=== PATIENT | male | born 1955 | race Caucasian/White ===

== ENCOUNTER 2022-04-01 12:05 | Outpatient (CLI) | payer OTHER, BC, SELFPAY ==
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
== END 2022-04-01 12:06 | disposition home or self-care (01) ==
LOC: AMB 05-02 15:50
PROVIDERS: PCP Family Medicine; Visit Provider Emergency Medicine Emergency Medical Services
DX: R10.9 Unspecified abdominal pain (principal)

== ENCOUNTER 2022-04-01 14:30 | Emergency (ER) | payer OTHER, BC, SELFPAY ==
[2022-04-01] VITALS (10 sets, daily range): BP systolic 96–193; BP diastolic 64–113; PULSE 57–87; RESP 18–24; TEMP 37.2; O2SAT 97–100; BMI 36.6
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
[2022-04-01 15:34] LABS: Appearance Urine Clear (Clear); Bilirubin Urine Negative (Negative); Blood Urine Negative (Negative); Color Urine Yellow (Yellow); Glucose Urine Negative (Negative); Ketones Urine Negative (Negative); Leukocyte Esterase Urine Negative (Negative); Nitrite Urine Negative (Negative); Protein Urine 1+ (Negative); Specific Gravity Urine 1.025 (1.000-1.030); Urobilinogen Urine 0.2 (0.2-1.0); pH Urine 5.5 (5.0-8.5)
--- OUTSIDE RECORDS SUMMARY | 2022-04-01 15:57 | XMS_ITS | Clinical Summary ---
:1955 Author Organization [email or web address] [facility] [facility] [place] [address] Care Team Providers Name Role Phone Suad Mobley MD Primary Care Provider [phone] Allergies No known active allergies Medications Medication Sig Dispensed Refills Start End Date Status Date aspirin chewable Take 1 tablet by 90 tablet 3 Active 81 mg chewable mouth once daily 8 tabletIndications with a meal. : Diabetes mellitus type 2, uncontrolled, with complications blood-glucose Dispense meter, 1 Device Active meterIndications: test strips, 8 Diabetes mellitus lancets covered type 2, by pt ins. E11.9 uncontrolled, IDDM type II - with Test 3 complications times/day. ACCU-CHEK GUIDE 3 times daily. 99 Active strip 9 blood sugar Test 2 times per 1 box A ctive diagnostic (BLOOD day. 1 GLUCOSE TEST) IDDM2-uncontroll stripIndications: ed. Controlled type 2 diabetes mellitus without complication, with long-term current use of insulin (HC) flash glucose As directed. 1 Each 0 Act damon scanning reader 1 (FreeStyle Dorothea 2 [place]) miscIndications: Diabetes mellitus type 2, uncontrolled, with complications UltiCare Pen USE TO INJECT 100 Each 3 Act damon Needle 32 gauge x INSULIN ONCE 1 Indications: DAILY Diabetes mellitus type 2, uncontrolled, with complications metFORMIN Take 4 Tablets 360 Tablet 3 Acti ve (GLUCOPHAGE XR) (2,000 mg) by 1 500 mg mouth once daily Extended-Release with evening tabletIndications meal. : Diabetes mellitus type 2, uncontrolled, with complications minocycline TAKE ONE CAPSULE 180 Capsule 1 Active (MINOCIN) 100 mg BY MOUTH TWICE A 2 capsuleIndication DAY s: Rosacea simvastatin Take 1 Tablet 90 Tablet 3 Acti ve (ZOCOR) 40 mg (40 mg) by mouth 2 tabletIndications at bedtime. : Uncontrolled type 2 diabetes mellitus with hyperglycemia (HC) insulin detemir Inject 30 units 60 mL 3 Active U-100 (Levemir subcutaneous 2 2 FlexTouch U-100 times daily. Insuln) 100 unit/mL (3 mL) penIndications: Uncontrolled type 2 diabetes mellitus with hyperglycemia (HC) FreeStyle Dorothea 2 DIRECTED. 6 Each 3 Active SensorIndications CHANGE SENSOR 2 : Uncontrolled EVERY 14 DAYS type 2 diabetes mellitus with hyperglycemia (HC) ketoconazole 2% As directed once 120 mL 11 Active shampoo (NIZORAL) daily if needed 2 2 % for Dry Scalp. shampooIndication Lather on damp s: Seborrheic scalp, leave on dermatitis for 5min, then rinse with water. ammonium lactate APPLY TOPICALLY 396 g 3 Active 12% topical TO AFFECTED 2 (LACHYDRIN) 12 % AREA(S) 2 TIMES lotionIndications DAILY. : Fissure in skin of foot ketoconazole 2% USE ONCE DAILY 120 mL 11 03/05/20 Discontinued shampoo (NIZORAL) IF NEEDED FOR 1 22 (Reorder 2 % DRY SCALP. (E-cancel not shampooIndication LATHER ON DAMP sent)) s: Seborrheic SCALP, LEAVE ON dermatitis FOR 5 MIN. THEN RINSE WITH WATER. ammonium lactate Apply topically 396 g 0 0 Discontinued 12% topical to affected 2 22 (LACHYDRIN) 12 % area(s) 2 times lotionIndications daily. : Fissure in skin of foot Active Problems Problem Noted Date History of COVID-19 2021 Overview: June 2020 Obesity, Class II, BMI 35-39.9 2021 Diabetes mellitus type 2, uncontrolled, with complicat ions 06/05/2018 Encounters Date Type Specialty Care Team Description 03/10/2022 Refill LeandraSuad hickey Refill Reque st (Leigh Ann Cruz MD Lactate 12% Top ical) 03/05/2022 Office Visit Suad Mobley Diabetes; Me sushant Cruz MD List Update (la chydrin, new prescribe ) 03/05/2022 Travel 02/03/2022 Office Visit Chacho Almazan, Ulcer ( Follow up-right DPM great toe) 02/03/2022 Telephone Lucita Thornton Work Note ALICIA Campos 02/03/2022 Telephone Suad Mobley Letter For W gita rCuz MD 02/03/2022 Travel 01/27/2022 Office Visit Suad Mobley Follow Up (R derrick Cruz MD foot/Toe) 01/27/2022 Travel 01/25/2022 Telephone Suad Mobley MD 01/20/2022 Office Visit Chacho Almazan R, Consult (Right foot DPM swelling, right great toenail) 01/20/2022 Travel 01/14/2022 Office Visit Suad Mobley Follow Up (R derrick Cruz MD foot/Still has swelling.) 01/14/2022 Travel 01/11/2022 Refill Suad Mobley MD (Freestyle Libr e 2 Sensor) 01/08/2022 Ancillary Procedure 01/08/2022 Office Visit Suad Mobley Foot Problem (Right foot MD Nancy swelling, has c ome down some but still swollen.) 01/08/2022 Telephone Suad Mobley PODIATRY ALBERT OINTMENT MD Nancy 01/08/2022 Travel 01/05/2022 Ancillary Procedure 01/05/2022 Office Visit Lucita Thornton Edema (Rt foot x week ) ALICIA Campos 01/05/2022 Telephone Suad Mobley Form MD Nancy 01/05/2022 Travel from Last 3 Months Immunizations Name Administration Dates Next Due COVID-19 vaccine (Moderna 100mcg/0.5mL) SILVER GARCIA 10/09/2020, 09/11/2020 COVID-19 vaccine (Pfizer-BioNTAttenex 30mcg/0.3mL) 11/27/2021 12YO+ MADIHA-SUCROSE PF, MDV Influenza, IIV4 07/09/2019 Influenza, Inactivated AIIV4 (Age 65+ Years) 06/08/2021 Preserv Free Pneumococcal Poly,23-Valent (Pneumovax) 06/08/2021 Tdap 06/08/2018 Zoster (Shingrix-RZV, recombinant) 11/27/2021, 07/09/2019 Social History Tobacco Use Types Packs/Day Years Used Date Former Smoker Quit: 01/01/20 09 Smokeless Tobacco: Never Used Tobacco Cessation: Counseling Given: Yes Alcohol Use Standard Drinks/Week Comments No 0 (1 standard drink = 0.6 oz pure alcoho l) Sex Assigned at Date Recorded Not on file COVID-19 Exposure Response Date Recorded In the last 10 days, have you been in contact with No / Unsu re 03/05/2022 3:49 PM CDT someone who was confirmed or suspected to have Coronavirus/COVID-19? Obstetrics History Last Filed Vital Signs Vital Sign Reading Time Taken Comments Blood Pressure 135/87 03/05/2022 4:14 PM CDT Pulse 74 03/05/2022 4:14 PM CDT Temperature 36.7 ??C (98 ??F) 06/03/2021 2:37 PM [employer] Respiratory Rate - - Oxygen Saturation 99% 03/05/2022 4:14 PM CDT Inhaled Oxygen Concentration - - Weight 123.8 kg (273 lb) 03/05/2022 4:14 PM CDT Height 177.8 cm (5' 10) 06/03/2021 2:37 PM [employer] Body Mass Index 39.17 06/03/2021 2:37 PM [employer] Plan of Treatment Upcoming Encounters Date Type Specialty Care Team Description 04/08/2022 Office Visit Erik Velazquez MD [address] [phone] (Linette casarez) 04/21/2022 Office Visit Suad Mobley MD [address] [address] (Linette casarez) 04/28/2022 Office Visit Suad Mobley MD [address] [facility] [place] [place] [address] (Wo rk) 06/23/2022 Office Visit Suad Mobley MD [address] [place], [place] [address] (Wo rk) Health Maintenance Due Date Last Done Comments Colonoscopy through age 75 2000 Depression screening for age 12+ 06/08/2019 06/08/2018, 09/2017, 06/05/2018, Additional history exists Influenza for age 65+ 03/04/2022 06/08/2021, 07/09/2019 BMI (ht and wt on same day) for 06/03/2022 06/03/2021, 04/04, age 18+ 12/31/2020, Additional history exists Pneumococcal series for age 65+ (2 06/08/2022 06/08/2021 - PCV) Lipids for age 45-75 11/27/2026 11/27/2021, 09/01/2020, 07/09/2019, Additional history exists Tetanus booster 06/08/2028 06/08/2018 Tdap Completed 06/08/2018 AAA screening age 55-77 Completed 06/20/2018 Hepatitis C screening for age Completed 07/09/2019 18-79 COVID-19 vaccine series Completed 11/27/2021, 04/29/2021, 10/09/2020, Additional history exists Zoster (shingles) series for age Completed 11/27/2021, 12/2019 50+ Procedures Procedure Name Priority Date/Time Associated Comments Diagnosis HEMOGLOBIN A1C Routine 03/05/2022 3:55 PM Type 2 diabetes Resu lts for this CDT mellitus without procedure a re in complication, with the resul ts long-term current section. use of insulin (HC) XR FOOT 3 VIEWS RIGHT Routine 01/08/2022 10:02 Swelling of rig ht Results for this AM CDT foot procedure are i n the results section. CBC WITH AUTO Routine 01/08/2022 9:55 AM Swelling of right Res ults for this DIFFERENTIAL CDT foot procedure are i n the results section. C-REACTIVE PROTEIN STAT 01/08/2022 9:55 AM Swelling of righ t Results for this CDT foot procedure are i n the results section. URIC ACID STAT 01/08/2022 9:55 AM Swelling of right Resu lts for this CDT foot procedure are i n the results section. CBC WITH AUTO Routine 01/08/2022 9:55 AM Swelling of right Res ults for this DIFFERENTIAL CDT foot procedure are i n the results section. US VENOUS LOWER Routine 01/05/2022 9:31 AM Right leg swelling Results for this EXTREMITY RIGHT CDT procedure ar e in the results section. from Last 3 Months Results (ABNORMAL) HEMOGLOBIN A1C MONITORING (POCT) (03/05/2022 3:55 PM CDT) Analysis Performed At Patho logist Time Signature HEMOGLOBIN A1C 8.0 (H) <=6.4 % 03/05/2022 [facility] MONITORING 4:09 PM CDT [facility] Specimen Anatomical Collection Method / Collection Time Recei carlos Time (Source) Location / Volume Laterality Blood BLOOD SPECIMEN / Venipuncture / 03/05/2022 3:55 2021 3:58 Unknown Unknown PM CDT PM CDT Narrative [facility] - 2021 4:09 PM CDT ? (<=6.9%) ? Indicates good control ? (7.0% to 7.9%) ? Indicates fa ir control ? (>=8.0%) ? Indicates poor control ?? NOTE: ??These thresholds are guideli yonathan and ?individual targets may va ry. Falsely low levels may be seen with: Recent Transfusion, Recent Significant B lood Loss, Hemolytic Diseases, or Falsely elevated levels may be seen with : Untreated Anemias, Splenectomy ? Suad Mobley MD CHEMISTRY Performing Organization Address City/State/ZIP Code Phon e Number [facility] [address] [place] [address] XR FOOT 3 VIEWS RIGHT (01/08/2022 10:02 AM CDT) Anatomical Region Laterality Modality FEET, FOOT R Computed Radiography Specimen (Source) Anatomical Collection Method Collection Time Re ceived Time Location / / Volume Laterality 01/08/2022 12:58 PM CDT Narrative 01/08/2022 12:58 PM CDT For Patients: ??As a result of the Cures Act, medical imaging exams and procedure report s are released immediately into your [facility] medical record. ??You may view this report before your referring provider. ??If you have questions, please contact your health care provider. Indication: Right foot swelling. Technique: Right foot 3 views Comparison: None Findings: Large plantar calcaneal spur. Incomplete ly ossified posterior calcaneal spur with Achilles tendon heterotopic ossification. Spurring at the midfoot. Degenerative changes at the 1st MTP joint. Bipartite medial tibial sesamoid. Chronic density adjacent to the medial navicular and associated with the medial malleolus. Impression: No fracture deformity is present. There is no malalignment. Degenerative changes, calcaneal spurs and chronic Achilles tendinosis. Dictated by Harish Leyva MD @ Jan ??2021 12:58PM (Electronically Signed) ?? Procedure Note Harish Leyva MD - 01/08/2022For matting of this note might be different from the original. For Patients: As a result of the Cures Act, medical imaging exams and procedure reports are released immediately into your electronic medical record. You may view this report before your referring provider. If you have questions, please contact yo health care provider. Indication: Right foot swelling. Technique: Right foot 3 views Comparison: None Findings: Large plantar calcaneal spur. Incomplete ly ossified posterior calcaneal spur with Achilles tendon heterotopic ossification. Spurring at the midfoot. Degenerative changes at the 1st MTP joint. Bipartite medial tibial sesamoid. Chronic density adjacen t to the medial navicular and associated with the medial malleolus. Impression: No fracture deformity is present. There is no malalignment. Degenerative changes, calcaneal spurs and chronic Achilles tendinosis. Dictated by Harish Leyva MD @ Jan 08 12:58PM (Electronically Signed) Suad Mobley MD GENERAL IMAGING CBC WITH AUTO DIFFERENTIAL (01/08/2022 9:55 AM CDT) P athologist Signature WHITE BLOOD 6.9 4.5 - 11.0 01/08/2022 [facility] COUNT thou/cu mm 9:59 AM CDT [facility] RED BLOOD COUNT 5.12 4.30 - 01/08/2022 [facility] 5.90 9:59 AM CDT [facility] mil/cu mm CLINIC HEMOGLOBIN 14.7 13.5 - 01/08/2022 [facility] 17.5 g/dL 9:59 AM CDT [facility] HEMATOCRIT 41.2 37.0 - 01/08/2022 [facility] 53.0 % 9:59 AM CDT [facility] MCV 81 80 - 100 01/08/2022 [facility] fL 9:59 AM T [facility] MCH 28.7 26.0 - 01/08/2022 [facility] 34.0 pg 9:59 AM T [facility] MCHC 35.7 32.0 - 01/08/2022 [facility] 36.0 g/dL 9:59 AM T [facility] RDW 14.1 11.5 - 01/08/2022 [facility] 15.5 % 9:59 AM T [facility] PLATELET COUNT 153 140 - 440 01/08/2022 [facility] thou/cu mm 9:59 AM T [facility] MPV 10.4 6.5 - 11.0 01/08/2022 [facility] fL 9:59 AM T [facility] % NEUT 70.1 % 01/08/2022 [facility] 9:59 AM CDT [facility] % LYMPH 20.6 % 01/08/2022 [facility] 9:59 AM CDT [facility] % MONO 6.7 % 01/08/2022 [facility] 9:59 AM CDT [facility] % EOS 2.2 % 01/08/2022 [facility] 9:59 AM CDT [facility] % BASO 0.4 % 01/08/2022 [facility] 9:59 AM CDT [facility] ABSOLUTE 4.8 1.7 - 7.0 01/08/2022 [facility] NEUTROPHILS thou/cu mm 9:59 AM CDT [facility] ABSOLUTE 1.4 0.9 - 2.9 01/08/2022 [facility] LYMPHOCYTES thou/cu mm 9:59 AM CDT [facility] ABSOLUTE 0.5 <0.9 01/08/2022 [facility] MONOCYTES thou/cu mm 9:59 AM CDT [facility] ABSOLUTE 0.2 <0.5 01/08/2022 [facility] EOSINOPHILS thou/cu mm 9:59 AM CDT [facility] ABSOLUTE 0.0 <0.3 01/08/2022 [facility] BASOPHILS thou/cu mm 9:59 AM CDT [facility] Specimen Anatomical Collection Method / Collection Time Recei carlos Time (Source) Location / Volume Laterality Blood BLOOD SPECIMEN / Venipuncture / 01/08/2022 9:55 2021 9:55 Unknown Unknown AM CDT AM CDT Suad Mobley MD HEMATOLOGY Performing Organization Address City/State/ZIP Code Phon e Number [facility] [address] [place] [address] C-REACTIVE PROTEIN (01/08/2022 9:55 AM CDT) P athologist Signature C-REACTIVE 0.15 <0.50 01/08/2022 [facility] PROTEIN mg/dL 2:35 PM CDT [facility] Specimen Anatomical Collection Method / Collection Time Recei carlos Time (Source) Location / Volume Laterality Blood BLOOD SPECIMEN / Venipuncture / 01/08/2022 9:55 2021 9:55 Unknown Unknown AM CDT AM CDT Suad Mobley MD CHEMISTRY Performing Organization Address City/State/ZIP Code Phon e Number [facility] [address] [place] [address] LABORATORY-[facility]EN[facility] [address] LABORATORY URIC ACID (01/08/2022 9:55 AM CDT) P athologist Signature URIC ACID 5.0 3.5 - 7.2 01/08/2022 [facility] mg/dL 2:37 PM CDT [facility] Specimen Anatomical Collection Method / Collection Time Recei carlos Time (Source) Location / Volume Laterality Blood BLOOD SPECIMEN / Venipuncture / 01/08/2022 9:55 2021 9:55 Unknown Unknown AM CDT AM CDT Suad Mobley MD CHEMISTRY Performing Organization Address City/State/ZIP Code Phon e Number [facility] [address] [place] [address] LABORATORY-CENTRAL [address] LABORATORY US VENOUS LOWER EXTREMITY RIGHT (01/05/2022 9:31 AM CDT) Anatomical Region Laterality Modality LEGS, LEG R, Abdomen Ultrasound Specimen (Source) Anatomical Collection Method Collection Time Re ceived Time Location / / Volume Laterality 01/05/2022 9:33 AM CDT Impressions 01/05/2022 9:33 AM CDT Normal venous ultrasound exam. No evidence of deep vein thrombosis within the right lower extremity. Dictated by Harish Leyva MD @ Jan ??5 2021 ??9:33AM (Electronically Signed) ?? Narrative 01/05/2022 9:33 AM CDT For Patients: ??As a result of the Cures Act, medical imaging exams and procedure report s are released immediately into your [facility] medical record. ??You may view this report before your referring provider. ??If you have questions, please contact your health care provider. INDICATION: Right leg swelling COMPARISON: None. TECHNIQUE: A compression venous ultrasound exam was performed of the right lower extremity using benavides-scale imaging, color Doppler and spectral Doppler analysis. FINDINGS: Sonographic imaging of the right lower e xtremity demonstrates normal compressibility and color Doppler venous blood flow within the common femoral vein, deep femoral vein, and the proximal greater saphe nous vein. Within the thigh, the femoral vein is patent and compressible. At a lower level, the popliteal and posterior tibial veins also show normal compressibility and color Doppler venous blood flow. Limited imaging of the contralateral melinda in demonstrates a normal spectral waveform and color Doppler venous blood flow within the left common femoral vein. Procedure Note Harish Leyva MD - 01/05/2022For matting of this note might be different from the original. For Patients: As a result of the Cures Act, medical imaging exams and procedure reports are released immediately into your electronic medical record. You may view this report before your referring provider. If you have questions, please contact yo health care provider. INDICATION: Right leg swelling COMPARISON: None. TECHNIQUE: A compression venous ultrasound exam was performed of the right lower extremity using benavides-scale imaging, color Doppler and spectral Doppler analysis. FINDINGS: Sonographic imaging of the right lower e xtremity demonstrates normal compressibility and color Doppler venous blood flow within the common femoral vein, deep femoral vein, and the proximal greater saphenous vein. Within the thigh, the femoral vein is pa tent and compressible. At a lower level, the popliteal and posterior tibial veins also show normal compressibility and color Doppler venous blood flow. Limited imaging of the contralateral melinda in demonstrates a normal spectral waveform and color Doppler venous blood flow within the left common femoral vein. IMPRESSION: Normal venous ultrasound exam. No eviden ce of deep vein thrombosis within the right lower extremity. Dictated by Harish Leyva MD @ Jan 05 9:33AM (Electronically Signed) Lucita VARGAS from Last 3 Months Insurance Payer Benefit Plan / Subscriber ID Effective Dates Phone Addre ss Type Group [employer] [id number] 2020-[employer] [address] [place] [address] [employer] WORK[employer] WC OWCP [id number] 2020-[employer] [address] [place] [address] [employer] [id number] 2021-[place] [address] [address] [place] [address] Care Teams Test Preparer Relationship Specialty Start Date End Date Suad Mobley MD PCP - General Family Practice 03/13/19 [address] [place] [address]
--- NOTE | 2022-04-01 16:20 | ED.NURSE ---
Patient reports feeling queasy and shaky which can happen when he has low blood sugar. Fingerstick glucose 160, patient and Dr. Estrada aware.
[2022-04-01 16:23] LABS: RBC Urine 0-2 (0-2); WBC Urine 0-2 (0-5)
[2022-04-01] MEDS: MORPHINE 10 MG/ML inj IM (16:39)
--- NOTE | 2022-04-01 17:15 | ED.NURSE ---
Patient notes feeling hot and dizzy. Nausea worse. Assisted patient to semi-fowlers position, coached on deep breathing. Likely response to morphine. Discussed with Dr. Estrada, to order zofran for patient.
[2022-04-01] MEDS: ONDANSETRON ODT 4 MG TAB PO (17:19)
--- NOTE | 2022-04-01 17:51 | ED.NURSE ---
Discharge teaching complete, all questions answered. Durga and anika e-scribed to [facility]. Patient VSS. Pain improved to 6/10 at this time. Discussed with patient importance of clinic follow up for long-term back pain care/plan. Patient denies questions or concerns. providing ride home. Patient able to re-dress independently, ambulate to 's car. NO questions/concerns. No IV.
== END 2022-04-01 17:55 | disposition home or self-care (01) ==
PROVIDERS: Emergency Provider Emergency Medicine Emergency Medical Services; PCP Family Medicine
DX: S32.010A Wedge compression fracture of first lumbar vertebra, initial encounter for closed fracture (principal); V47.0XXA Car driver injured in collision with fixed or stationary object in nontraffic accident, initial encounter
CPT/HCPCS: 74176; 81001; 82962; 96372; 96374; 99285; 99291; A9270; J2270